=== PATIENT | female | born 1995 | race Caucasian/White ===

== ENCOUNTER 2016-08-17 10:25 | Emergency (ER) | payer BC ==
[~2016-08-17] VITALS: Ht 165.1 cm; Wt 54.2 kg
[2016-08-17 10:42] VITALS: TEMP 36.7; Ht 165.1 cm; Wt 54.2 kg
--- NOTE | 2016-08-17 11:10 | EMERGENCY ROOM VISIT NOTE ---
History First contact with patient: 10:48 Chief Complaint: ABDOMINAL PAIN Stated Complaint: SEVERE LEFT SIDED ABD. PAIN, NAUSEA History of Present Illness The patient is a 21 year old female who presents to the Emergency Room with complaints of severe left sided abdominal pain. Woke up and felt uncomfortable, worse on moving around. Radiating up right upper abdomen. Severity 8/10 this morning, currently 6/10, took acetaminophen this morning around 9am. Nausea, but no vomiting. She has been having loose stool for the last 2 weeks. BM this morning was dark and runny. Associated mild nausea. Her grandmother was recently diagnosed with c. diff but she hasn't spent a significant amount of time around her lately. She had a previous similar pain episode last week which resolved after 2 hours. She took pepto-bismol and acetaminophen which she thinks helped. Severity 7-8/ 10 at that time also. No light headed, dizziness, nausea, vomiting. No fevers or chills. No urinary Sx. No history of kidney stones. No recent stress or anxiety that she feels could have brought this on. Last period was last week and was usual for her. Previous cholecystectomy relieved her chronic diarrhea and abdominal pains previously. Review of Systems See HPI for pertinent positives & negatives. A total of 10 systems reviewed and were otherwise negative. Past Medical/Surgical History Asthma Depression and anxiety - Heat mumur Hx pneumonia (not inseveral years Hx cholecystectomy Social History Smoking Status: Never Smoker Current/Historical Medications Scheduled Dicyclomine Hcl (Bentyl), 1 TAB PO QID Esomeprazole Magnesium (Nexium), 20 MG PO DAILY Fexofenadine Hcl (No), 180 MG PO DAILY [Antidepressant], 1 TAB PO DAILY Scheduled PRN Ondansetron Hcl (Zofran), 4 MG PO Q4H PRN for Nausea Allergies Coded Allergies: Cetirizine (Unverified Allergy, Unknown, ., 08/17/16) Erythromycin (Unverified Allergy, Unknown, ., 08/17/16) Loratadine (Unverified Allergy, Unknown, ., 08/17/16) Soy Allergy (Unverified Allergy, Unknown, ., 08/17/16) Physical Exam Vital Signs Date Time Temp Pulse Resp B/P (MAP) Pulse Ox O2 Delivery O2 Flow Rate FiO2 6/12/17 18:02 71 16 115/85 97 Room Air 08/17/16 16:19 70 16 110/70 98 Room Air 08/17/16 13:59 66 16 108/73 99 Room Air 08/17/16 10:42 36.7 92 16 125/82 99 Room Air Physical Exam VITAL SIGNS: were reviewed as above GENERAL: mild acute distress - distress does not appear to correlate with pain score SKIN: Warm dry and pink, erythematous macular papular rash on both arms (she notes from nickel allergy which preceded this illness) HEAD: Normocephalic and atraumatic EYES: extraocular muscles intact, pupils equal and reactive to light OROPHARYNX: non erythematous, clear and moist NECK: Supple, no adenopathy or meningismus LUNGS: clear to auscultation, no accessory muscle use HEART: Regular rate and rhythm, heart sounds 1+2, no murmurs ABDOMEN: Soft, generalized tenderness especially on left side without guarding or rebound tenderness, bowel sounds normal BACK: b/l CVA tenderness, worse on left side EXTREMITIES: Warm and well perfused, no calf tenderness/swelling, no pedal edema. NEUROLOGICALLY: Awake alert and oriented without focal deficit. Cranial nerves 2 -12 intact. Cerebellar testing is within normal limits. There is no nystagmus. There is no facial droop. Speech is clear. Vision is grossly normal. MUSCULOSKELETAL: Good muscle tone. No evidence of trauma Medical Decision & Procedures ER Provider Diagnostic Interpretation: PELVIC ULTRASOUND CLINICAL HISTORY: Severe left-sided abdominal pain and nausea. Evaluate for evidence of ovarian torsion. COMPARISON STUDY: CT of the abdomen and pelvis August 17, 2016. TECHNIQUE: Transabdominal transvaginal sonography of the pelvis was performed. FINDINGS: The uterus measures 7.2 x 3.6 x 4.5 cm. Endometrium measures 3 mm in thickness. The right ovary measures 2.7 x 2.3 x 2.2 cm and the left measures 3.3 x 2.5 x 2.3 cm. There are follicles within each ovary. There is no adnexal mass. Color flow is identified within each ovary. Trace fluid is likely physiologic. IMPRESSION: Normal pelvic ultrasound. Electronically signed by: Yeison Mosqueda M.D. 08/17/2016 5:53 PM Dictated Date/Time: 08/17/2016 5:[address] ABD/PELVIS IV AND ORAL CONT CLINICAL HISTORY: Left-sided abdominal pain COMPARISON STUDY: None. TECHNIQUE: Following the IV administration of 93 mL of Optiray-320, CT scan of the abdomen and pelvis was performed from the lung bases to the proximal femurs. Images are reviewed in the axial, sagittal, and coronal planes. IV contrast was administered without complication. CT DOSE: 259.45 mGy.cm FINDINGS: Lower chest: The heart is normal in size and configuration, without pericardial effusion. The lung bases and pleural spaces are clear. Liver: The contrast-enhanced liver is normal in size, contour, and attenuation. There is no intrahepatic biliary ductal dilatation. The hepatic veins and portal veins are patent. There is mild periportal edema, likely secondary to IV hydration Gallbladder: Unremarkable. Spleen: Normal in size and attenuation. Pancreas: Unremarkable. Adrenal glands: Unremarkable. Kidneys: There is symmetric renal cortical enhancement. The kidneys are normal in size without hydronephrosis. Bowel: There are no transition zones indicate bowel obstruction. There is no evidence of acute diverticulitis. There is no evidence of acute appendicitis. Peritoneum: There is no free air. There is trace free pelvic fluid likely physiologic. Vasculature: The abdominal aorta is normal in course and caliber. Adenopathy: None. Pelvic viscera: The bladder, and pelvic viscera are unremarkable. Skeletal structures: No destructive osseous lesions are seen. IMPRESSION: 1. No acute intra-abdominal or pelvic findings. 2. No evidence of bowel obstruction. No evidence of free air 3. No evidence of acute appendicitis. No evidence of acute diverticulitis. Electronically signed by: Myles Atkinson M.D. 08/17/2016 4:21 PM Dictated Date/Time: 08/17/2016 4:09 PM KUB HISTORY: ?obstruction, fecal impaction COMPARISON: None. FINDINGS: The bowel gas pattern is unremarkable. There are no dilated loops of small bowel to suggest an obstruction. Small amount of well-formed. The colon. No renal calculi. No ureteral calculi. No pneumoperitoneum or pneumatosis. Cholecystectomy. IMPRESSION: No radiographic evidence for constipation. No evidence for bowel obstruction. Electronically signed by: Eusebio Sloan M.D. 08/17/2016 12:23 PM Dictated Date/Time: 08/17/2016 12:22 PM Laboratory Results 08/17/16 11:30 Red Blood Count 4.59, Mean Corpuscular Volume 84.5, Mean Corpuscular Hemoglobin 28.5, Mean Corpuscular Hemoglobin Concent 33.8, Mean Platelet Volume 10.3, Neutrophils (%) (Auto) 56.3, Lymphocytes (%) (Auto) 35.9, Monocytes (%) (Auto) 6.3, Eosinophils (%) (Auto) 1.1, Basophils (%) (Auto) 0.2, Neutrophils # (Auto) 2.59, Lymphocytes # (Auto) 1.65, Monocytes # (Auto) 0.29, Eosinophils # (Auto) 0.05, Basophils # (Auto) 0.01 08/17/16 11:30 Test 08/17/16 11:30 White Blood Count 4.60 K/uL (4.8-10.8) Red Blood Count 4.59 M/uL (4.2-5.4) Hemoglobin 13.1 g/dL (12.0-16.0) Hematocrit 38.8 % (37-47) Mean Corpuscular Volume 84.5 fL (80-100) Mean Corpuscular Hemoglobin 28.5 pg (25-34) Mean Corpuscular Hemoglobin Concent 33.8 g/dl (32-36) Platelet Count 202 K/uL (130-400) Mean Platelet Volume 10.3 fL (7.4-10.4) Neutrophils (%) (Auto) 56.3 % Lymphocytes (%) (Auto) 35.9 % Monocytes (%) (Auto) 6.3 % Eosinophils (%) (Auto) 1.1 % Basophils (%) (Auto) 0.2 % Neutrophils # (Auto) 2.59 K/uL (1.4-6.5) Lymphocytes # (Auto) 1.65 K/uL (1.2-3.4) Monocytes # (Auto) 0.29 K/uL (0.11-0.59) Eosinophils # (Auto) 0.05 K/uL (0-0.5) Basophils # (Auto) 0.01 K/uL (0-0.2) RDW Standard Deviation 41.6 fL (36.4-46.3) RDW Coefficient of Variation 13.6 % (11.5-14.5) Immature Granulocyte % (Auto) 0.2 % Immature Granulocyte # (Auto) 0.01 K/uL (0.00-0.02) Urine Color YELLOW Urine Appearance CLOUDY (CLEAR) Urine pH 7.5 (4.5-7.5) Urine Specific [place] 1.024 (1.000-1.030) Urine Protein NEG (NEG) Urine Glucose (UA) NEG (NEG) Urine Ketones NEG (NEG) Urine Occult Blood 3+ (NEG) Urine Nitrite NEG (NEG) Urine Bilirubin NEG (NEG) Urine Urobilinogen NEG (NEG) Urine Leukocyte Esterase SMALL (NEG) Urine WBC (Auto) 5-10 /hpf (0-5) Urine RBC (Auto) >30 /hpf (0-4) Urine Hyaline Casts (Auto) 1-5 /lpf (0-5) Urine Epithelial Cells (Auto) >30 /lpf (0-5) Urine Bacteria (Auto) NEG (NEG) Urine Test NEG (NEG) Anion Gap 7.0 mmol/L (3-11) Est Creatinine Clear Calc Drug Dose 95.6 ml/min Estimated GFR () 123.2 Estimated GFR (Non- 106.3 BUN/Creatinine Ratio 14.4 (10-20) Calcium Level 9.1 mg/dl (8.5-10.1) Total Bilirubin 0.3 mg/dl (0.2-1) Aspartate Amino Transf (AST/SGOT) 23 U/L (15-37) Alanine Aminotransferase (ALT/SGPT) 15 U/L (12-78) Alkaline Phosphatase 39 U/L (45-117) Total Protein 8.0 gm/dl (6.4-8.2) Albumin 4.0 gm/dl (3.4-5.0) Globulin 4.0 gm/dl (2.5-4.0) Albumin/Globulin Ratio 1.0 (0.9-2) Lipase 210 U/L (73-393) Human Chorionic Gonadotropin, Qual NEG (NEG) Chemistry Specimen Hemolysis Medications Administered Medications (Trade) Dose Ordered Sig/Arnaldo Route Start Time Stop Time Status Last Admin Dose Admin Ondansetron HCl (Zofran Odt) 4 mg NOW STAT PO 08/17/16 11:15 08/17/16 11:17 DC 08/17/16 11:53 4 MG Ketorolac Tromethamine (Toradol Inj) 15 mg NOW STAT IV 08/17/16 11:22 08/17/16 11:23 DC 08/17/16 11:55 15 MG Sodium Chloride 1,000 ml @ 999 mls/hr Q1H1M STAT IV 08/17/16 13:27 08/17/16 14:27 DC 08/17/16 13:58 999 MLS/HR Ondansetron HCl (Zofran Inj) 4 mg NOW STAT IV 08/17/16 13:31 08/17/16 13:32 DC 08/17/16 13:58 4 MG Sodium Chloride 1,000 ml @ 999 mls/hr Q1H1M STAT IV 08/17/16 15:42 08/17/16 16:42 DC 08/17/16 16:01 999 MLS/HR Lidocaine HCl (Viscous Lidocaine 2% Soln) 20 ml STK-MED ONCE .ROUTE 08/17/16 17:58 08/17/16 17:59 DC 08/17/16 18:00 10 ML Al Hydroxide/Mg Hydroxide (Maalox Susp) 30 ml STK-MED ONCE .ROUTE 08/17/16 17:58 08/17/16 17:59 DC 08/17/16 18:00 30 ML Dicyclomine HCl (Bentyl Tab) 20 mg ONE STAT PO 08/17/16 18:32 08/17/16 18:33 DC 08/17/16 18:45 20 MG ED Course 11:00 Complete history and physical performed 11:[address] Arndt who agreed with above plan 13:[address] Arndt and CT A/P with IV and PO contrast ordered 16:30 Reassessed patient and pain improving however still having severe epigastric and LLQ pain, discussed case with Dr Dennis and US pelvis ordered. 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 Recommend d/c. Medical Decision Prior records/ancillary studies reviewed. Triage Nursing notes reviewed. Additional history obtained from patient, sister and her mother. The patient's history was concerning for abdominal pain. Differential diagnosis: Etiologies such as appendicitis, diverticulitis, PUD, biliary pathology, UTI, pancreatitis, obstruction, mesenteric ischemia, aortic pathology, infections, inflammatory bowel disease, renal colic, as well as others were entertained. Physical examination findings: As above. ER treatment provided: Toradol, Zofran, dicyclomine, NSS x2L, On reassessment the patient felt better. Diagnostics interpreted by me: The labs were unremarkable Urine showed hematuria (epithelial cell >30 also noted) Imaging studies: AXR, CT and pelvic US were essentially normal By the evaluation outlined above emergent etiologies such as appendicitis, diverticulitis, PUD, biliary pathology, UTI, pancreatitis, obstruction, mesenteric ischemia, aortic pathology, infections, inflammatory bowel disease, renal colic, as well as others were deemed relatively unlikely. Likely diagnosis of IBS. The patient informed about the findings as listed above. All questions were answered and she was pleased with the treatment. Return instructions were outlined and the patient was discharged in stable condition. Outpatient prescription management: Zofran 4 mg Q4H PRN for nausea #10 Dicyclomine 20mg 1 tab QID for 14 days Referral: The patient was referred back to their primary care physician for follow-up in 2 to 3 days for a recheck of the current condition and to check clearance of blood in urine. Recommended she also contact her GI doctor for follow up at the earliest opportunity. Impression Primary Impression: Left lower quadrant pain Additional Impressions: Asymptomatic microscopic hematuria Epigastric pain Departure Information Dispostion Home / Self-Care Condition FAIR Prescriptions Dicyclomine Hcl (BENTYL) 20 Mg Tab 1 TAB PO QID for 14 Days, #56 TAB Prov: Darrin Salcido MD 08/17/16 Ondansetron Hcl (ZOFRAN) 4 Mg Tab 4 MG PO Q4H Y for Nausea, #10 TAB Prov: Darrin Salcido MD 08/17/16 Referrals No Doctor, Assigned (PCP) Patient Instructions [facility] Additional Instructions You were evaluated in the ER for left sided abdominal pain. Labs, urine and CT scan and US were mostly unremarkable. There is microscopic hematuria on the urine analysis therefore this was sent for culture however given lack of other urinary symptoms this is unlikely to represent an infection. You will be called if this culture is subsequently positive. You should follow up with you PCP in 2-3 days regarding the hematuria and recommend retesting to make sure it clears. Recommend calling your micro photographer in the morning for follow up appointment given your chronic GI problems as this may be related. Resident Tracking Resident Involvement: Resident Care Provided Care Provided: Adult ED Problem Qualifiers
[2016-08-17] MEDS ORDERED: ONDANSETRON 4MG OD TAB PO STA (11:15)
[2016-08-17] MEDS ORDERED: KETOROLAC TROMETHAMINE 30 MG/ML VIAL IV STA (11:22)
[2016-08-17] MEDS ORDERED: ESOM20CA PO (11:29)
[2016-08-17] MEDS ORDERED: FEXO1TAB46 PO (11:29)
[2016-08-17] MEDS ORDERED: ANTIDEPRESSANT PO (11:29)
[2016-08-17 11:52] LABS: BASO % 0.2 %; BASO ABS # 0.01 K/uL (0-0.2); COMPLETE YES; EOS % 1.1 %; HEMATOCRIT 38.8 % (37-47); IG% 0.2 %; LYMPH % 35.9 %; LYMPH ABS # 1.65 K/uL (1.2-3.4); MEAN CELL VOLUME 84.5 fL (80-100); MEAN CORPUSCULAR HEMOGLOBIN 28.5 pg (25-34); MEAN CORPUSCULAR HGB CONC 33.8 g/dl (32-36); MEAN PLATELET VOLUME 10.3 fL (7.4-10.4); MONO % 6.3 %; NEUT % 56.3 %; PLATELET COUNT 202 K/uL (130-400); RED BLOOD COUNT 4.59 M/uL (4.2-5.4)
[2016-08-17 11:55] LABS: URINE APPEARANCE CLOUDY (CLEAR); URINE BILIRUBIN NEG (NEG); URINE COLOR YELLOW; URINE EPITHELIAL CELL AUTO >30 /lpf (0-5); URINE NITRITE NEG (NEG); URINE PH 7.5 (4.5-7.5); URINE SPECIFIC GRAVITY 1.024 (1.000-1.030); UROBILINOGEN NEG (NEG); ZZUR CULT IF INDIC CLEAN CATCH NO
[2016-08-17 12:01] LABS: MANUAL MICROSCOPIC REQUIRED? NO; REVIEW REQ? NO
--- NOTE | 2016-08-17 12:24 | DIAGNOSTIC IMAGING REPORT ---
KUB HISTORY: ?obstruction, fecal impaction COMPARISON: None. FINDINGS: The bowel gas pattern is unremarkable. There are no dilated loops of small bowel to suggest an obstruction. Small amount of well-formed. The colon. No renal calculi. No ureteral calculi. No pneumoperitoneum or pneumatosis. Cholecystectomy. IMPRESSION: No radiographic evidence for constipation. No evidence for bowel obstruction. Electronically signed by: Eusebio Sloan M.D. 08/17/2016 12:23 PM Dictated Date/Time: 08/17/2016 12:22 PM
[2016-08-17 12:28] LABS: BUN/CREATININE RATIO 14.4 (10-20); CALCIUM 9.1 mg/dl (8.5-10.1); CREATININE 0.79 mg/dl (0.60-1.20); POTASSIUM 3.8 mmol/L (3.5-5.1)
[2016-08-17 12:32] LABS: PREG INTERNAL NEGATIVE QC NEG CLEAR BACKGROUND; PREG INTERNAL POSITIVE QC POS CONTROL LINE
[2016-08-17] MEDS ORDERED: SODIUM CHLORIDE 0.9% 1000ML 1,000 ML IV STA ×2 (13:27→15:42)
[2016-08-17] MEDS ORDERED: ONDANSETRON INJ 2 MG/ML 2 ML VIAL IV STA (13:31)
[2016-08-17] MEDS ORDERED: OPTIRAY 320 IV PRN (13:45)
--- NOTE | 2016-08-17 14:12 | EMERGENCY ROOM VISIT NOTE ---
ED Visit Note First contact with patient: 10:48 Resident Physician Supervision Note: I was present with during the history and exam. I discussed the case with the resident and agree with the findings and plan as documented in the note. Documented By: Jesse Arndt
--- NOTE | 2016-08-17 16:22 | DIAGNOSTIC IMAGING REPORT ---
CT ABD/PELVIS IV AND ORAL CONT CLINICAL HISTORY: Left-sided abdominal pain COMPARISON STUDY: None. TECHNIQUE: Following the IV administration of 93 mL of Optiray-320, CT scan of the abdomen and pelvis was performed from the lung bases to the proximal femurs. Images are reviewed in the axial, sagittal, and coronal planes. IV contrast was administered without complication. CT DOSE: 259.45 mGy.cm FINDINGS: Lower chest: The heart is normal in size and configuration, without pericardial effusion. The lung bases and pleural spaces are clear. Liver: The contrast-enhanced liver is normal in size, contour, and attenuation. There is no intrahepatic biliary ductal dilatation. The hepatic veins and portal veins are patent. There is mild periportal edema, likely secondary to IV hydration Gallbladder: Unremarkable. Spleen: Normal in size and attenuation. Pancreas: Unremarkable. Adrenal glands: Unremarkable. Kidneys: There is symmetric renal cortical enhancement. The kidneys are normal in size without hydronephrosis. Bowel: There are no transition zones indicate bowel obstruction. There is no evidence of acute diverticulitis. There is no evidence of acute appendicitis. Peritoneum: There is no free air. There is trace free pelvic fluid likely physiologic. Vasculature: The abdominal aorta is normal in course and caliber. Adenopathy: None. Pelvic viscera: The bladder, and pelvic viscera are unremarkable. Skeletal structures: No destructive osseous lesions are seen. IMPRESSION: 1. No acute intra-abdominal or pelvic findings. 2. No evidence of bowel obstruction. No evidence of free air 3. No evidence of acute appendicitis. No evidence of acute diverticulitis. Electronically signed by: Myles Atkinson M.D. 08/17/2016 4:21 PM Dictated Date/Time: 08/17/2016 4:09 PM
[2016-08-17] MEDS ORDERED: GI COCKTAIL PO STA (16:41)
--- NOTE | 2016-08-17 17:55 | DIAGNOSTIC IMAGING REPORT ---
PELVIC ULTRASOUND CLINICAL HISTORY: Severe left-sided abdominal pain and nausea. Evaluate for evidence of ovarian torsion. COMPARISON STUDY: CT of the abdomen and pelvis August 17, 2016. TECHNIQUE: Transabdominal transvaginal sonography of the pelvis was performed. FINDINGS: The uterus measures 7.2 x 3.6 x 4.5 cm. Endometrium measures 3 mm in thickness. The right ovary measures 2.7 x 2.3 x 2.2 cm and the left measures 3.3 x 2.5 x 2.3 cm. There are follicles within each ovary. There is no adnexal mass. Color flow is identified within each ovary. Trace fluid is likely physiologic. IMPRESSION: Normal pelvic ultrasound. Electronically signed by: Yeison Mosqueda M.D. 08/17/2016 5:53 PM Dictated Date/Time: 08/17/2016 5:47 PM
[2016-08-17] MEDS ORDERED: LIDOCAINE HCL 2% VISC SOLN 20 ML UDC ONE (17:58)
[2016-08-17] MEDS ORDERED: ALUMINUM/MAGNESIUM SUSP 30 ML UDC ONE (17:58)
[2016-08-17 18:02] VITALS: BP 115/85; PULSE 71; O2SAT 97
[2016-08-17] MEDS ORDERED: ONDA4TAB46 PO (18:28)
[2016-08-17] MEDS ORDERED: DICYCLOMINE HCL 20 MG TAB PO STA (18:32)
[2016-08-17] MEDS ORDERED: DICY10CA55 PO (18:34)
[2016-08-17] MEDS ORDERED: DICY20TA35 PO (18:40)
== END 2016-08-17 18:55 | disposition home or self-care (01) ==
LOC: C.EDB 10:27 → C.EDC 18:55
DX: R10.32 Left lower quadrant pain (principal); R31.21 Asymptomatic microscopic hematuria; R10.13 Epigastric pain; J45.909 Unspecified asthma, uncomplicated; F41.8 Other specified anxiety disorders; R01.1 Cardiac murmur, unspecified